=== PATIENT | female | born 1985 | race African-American/Black ===

== ENCOUNTER 2017-05-05 09:43 | Inpatient (IN) | payer OTHER ==
[2017-05-05 11:10] LABS: Hematocrit 36 % (35-47); Mean Corpuscular HGB Conc 33 g/dl (31-36); Mean Corpuscular Hemoglobin 30 pg (27-31); Mean Corpuscular Volume 89 fL (80-97); Mean Platelet Volume 10 um3 (7.4-10.4); Red Blood Count 4.07 10^6/ul (4.0-5.4); Red Cell Distribution Width 15 % (10.5-15); White Blood Count 6.8 10^3/ul (3.5-10.8)
[2017-05-05] MEDS ORDERED: OBEPIDURAL* 250 ML EPIDURAL ONE (14:04)
[2017-05-05] MEDS ORDERED: fentaNYL* 50 MCG/ML 2 ML VIAL (100 MCG VIAL) ONE (14:24)
[2017-05-05] MEDS ORDERED: Phenylephrine IV* 40 MCG/ML 10 ML SYRINGE IV PUSH PRN ×2 (15:07)
[2017-05-05] MEDS ORDERED: Sodium Citrate/Citric Acid* 15 ML UDC PO PRN (15:07)
[2017-05-05] MEDS ORDERED: Famotidine TAB* 20 MG PO PRN (15:07)
[2017-05-05] MEDS ORDERED: OBEPIDURAL* 250 ML EPIDURAL SCH (16:00)
[2017-05-05] MEDS ORDERED: Oxytocin in LR* 20 UNITS/1,000 ML BAG IVPB SCH ×2 (16:00→21:00)
[2017-05-05] MEDS ORDERED: D5LR 1000 ML BAG* 1,000 ML IV SCH (18:00)
[2017-05-05] MEDS ORDERED: ceFOXitin 2 GM IVPREMIX* 2 GM/50 ML BAG ONE (19:20)
[2017-05-05] MEDS ORDERED: OXYTOCIN* 10 UNITS/ML 1 ML VIAL ONE ×2 (19:52→19:56)
[2017-05-05] MEDS ORDERED: Ondansetron INJ* 2 MG/ML VIAL ONE (19:54)
[2017-05-05] MEDS ORDERED: Lidocaine 2% PF* 10 ML AMP ONE (19:58)
[2017-05-05] MEDS ORDERED: Morphine PF AMP (0.5MG/ML)* 5 MG/10 ML AMP ONE (20:04)
[2017-05-05] MEDS ORDERED: Ketorolac INJ* 30 MG/ML 1 ML VIAL ONE (20:08)
[2017-05-05] MEDS ORDERED: Acetaminophen TAB* 325 MG PO PRN (20:47)
[2017-05-05] MEDS ORDERED: Dibucaine 1% 28.35 GM TUBE PR PRN (20:47)
[2017-05-05] MEDS ORDERED: Glycerin ADULT SUPP PR PRN (20:47)
[2017-05-05] MEDS ORDERED: Witch Hazel PAD* JAR TOPICAL PRN (20:47)
[2017-05-05] MEDS ORDERED: Ondansetron INJ* 2 MG/ML VIAL IV PRN ×2 (20:49→20:50)
[2017-05-05] MEDS ORDERED: Scopolamine 1.5 mg* PATCH TRANSDERM PRN (20:49)
[2017-05-05] MEDS ORDERED: diPHENhydraMINE IV* 50 MG/ML 1 ml VIAL (BENADRYL) IV PRN ×2 (20:49→20:50)
[2017-05-05] MEDS ORDERED: fentaNYL* 50 MCG/ML 2 ML VIAL (100 MCG VIAL) IV PRN (20:49)
[2017-05-05] MEDS ORDERED: DiMENhydriNATE IV* 50 MG/ML VIAL IV PUSH PRN ×2 (20:49→20:50)
[2017-05-05] MEDS ORDERED: Naloxone* 2 MG in NS 0.9% 250 ML* 250 ML IV PRN ×2 (20:49→20:50)
[2017-05-05] MEDS ORDERED: oxyCODONE/Acetamin 5/325 MG* TAB PO PRN (20:50)
[2017-05-05] MEDS ORDERED: Nalbuphine* 20 MG/ML 1 ML VIAL IV PRN (20:50)
[2017-05-05] MEDS ORDERED: Naloxone* 0.4 MG/ML 1 ML VIAL IV PRN (20:50)
[2017-05-05] MEDS ORDERED: PROCHLORPERAZINE INJ 5 MG/ML 2 ML VIAL IV PRN (20:50)
[2017-05-05] MEDS ORDERED: HYDROcodone/ACETAMIN 5-325 MG* 1 TAB PO PRN (20:50)
[2017-05-05] MEDS ORDERED: Scopolamine 1.5 mg* PATCH ONE (21:05)
[2017-05-05] MEDS ORDERED: PROCHLORPERAZINE INJ 5 MG/ML 2 ML VIAL ONE (21:11)
[2017-05-06] MEDS: Ketorolac INJ* 30 MG/ML 1 ML VIAL IV PRN ×2 (04:55→11:01)
[2017-05-06] MEDS: Simethicone TAB* 80 MG TAB.CHEW PO SCH ×5 (05:12→20:35)
[2017-05-06] MEDS: Docusate CAP* 100 MG PO SCH ×4 (05:12→20:35)
[2017-05-06] MEDS ORDERED: Lidocaine 1% MPF* 2 ML VIAL ONE (05:27)
[2017-05-06] MEDS: Ferrous Gluconate TAB* 324 MG TAB PO SCH ×2 (08:30→20:34)
[2017-05-06] MEDS: Prenatal Vitamin TAB PO SCH (08:31)
[2017-05-06 09:46] LABS: Hematocrit 27 % (35-47); Hemoglobin 9.2 g/dl (12.0-16.0); Mean Corpuscular HGB Conc 34 g/dl (31-36); Mean Corpuscular Hemoglobin 31 pg (27-31); Mean Corpuscular Volume 89 fL (80-97); Mean Platelet Volume 10 um3 (7.4-10.4); Red Blood Count 3.03 10^6/ul (4.0-5.4); Red Cell Distribution Width 15 % (10.5-15); White Blood Count 8.2 10^3/ul (3.5-10.8)
[2017-05-06] MEDS ORDERED: oxyCODONE/Acetamin 5/325 MG* TAB PO PRN ×2 (12:00)
--- NOTE | 2017-05-06 14:45 | OP ---
DATE OF OPERATION: 05/05/17 - ROOM #[id number]-116 DATE OF : 83 SURGEON: Dara Barrios MD DE ALCOHOLIZER: Seble Miles CNM PRE-OP DIAGNOSES: Category II heart tracing, trial of labor after section, arrest of dilation, and 39 and 5/7th weeks intrauterine . POST-OP DIAGNOSES: Category II heart tracing, trial of labor after section, arrest of dilation, and 39 and 5/7th weeks intrauterine , delivered. OPERATIVE PROCEDURE: Repeat low transverse section. ESTIMATED BLOOD LOSS: 600 cc. IV FLUIDS: 1900 cc of crystalloid. URINE OUTPUT: 100 cc of pink tinged urine. FINDINGS: Revealed a vertex LOT female with Apgars 5 at 1 minute and 9 at 5 minutes. No nuchal cord. Light meconium. Normal-appearing placenta manually extracted. Three-vessel cord intact. Uterine cavity explored without evidence of retained placental tissue or membranes. Fundal fibroid intramural palpated. Unable to deliver the uterus because of the size of the uterus and fibroid together. Normal-appearing tubes and ovaries bilaterally. COMPLICATIONS: None apparent. DISPOSITION: Stable to recovery room. DESCRIPTION OF PROCEDURE: The patient was placed in dorsal lithotomy position. The abdomen was prepped and draped in a sterile standard fashion. The patient was identified with universal protocol. Sensation was tested to appropriate level of anesthesia and incision was made with scalpel through prior incision. This was carried down through the fascia. Fascia was scored in the midline and extended laterally and superiorly using Bolton scissors, superiorly and inferiorly from the rectus muscle with blunt and sharp dissection. The peritoneum was then entered bluntly. Bladder blade was inserted. Lower uterine segment was identified. An incision was made with scalpel. This was carried down very quickly, bluntly to the baby. The incision was extended bluntly. The was delivered. Anterior posterior shoulder delivered. Cord was milked. Baby was immediately handed off to awaiting moth exterminator. Appropriate cord blood was obtained as well as cord gases. Placenta was then manually extracted and noted to be intact with the three-vessel cord. Uterus was palpated. There was a large intramural fundal fibroid making the removal of the uterus not possible through the size of the incision. The uterine cavity was explored and noted to be free of any membranes or placental tissue. Both tubes and ovaries were palpated and palpated normally. The incision was clamped with broad Allis and the incision was closed in two layers, first layer running locked, second layer running imbricated. Lavage was performed. Hemostasis was noted. There was a small area of bleeding as the peritoneum crossed the bladder. This was made hemostatic 3.0 vicryl. Again, copious lavage was performed. Hemostasis was documented. The peritoneum was clamped with Syl and then reapproximated using 3-0 Vicryl in a running fashion. Subfascial area was visualized. Hemostasis assured with Bovie coagulation and the fascia was then reapproximated with 0 Vicryl x2. Subcu was lavaged. Hemostasis was assured with Bovie coagulation and the skin was then reapproximated with a 4-0 Monocryl in a subcuticular fashion. All sponge, needle, instrument and blade counts were correct throughout the case. The patient tolerated the procedure well and went to recovery room in stable condition. [id number]/[facility] #: [id number] KALYN
[2017-05-06] MEDS: Ibuprofen TAB* 600 MG PO PRN (20:35)
[2017-05-07] MEDS: Ibuprofen TAB* 600 MG PO PRN ×4 (04:16→22:02)
[2017-05-07] MEDS: Ferrous Gluconate TAB* 324 MG TAB PO SCH ×2 (10:01→22:02)
[2017-05-07] MEDS: Docusate CAP* 100 MG PO SCH ×3 (10:01→22:02)
[2017-05-07] MEDS: Prenatal Vitamin TAB PO SCH (10:01)
[2017-05-07] MEDS: Simethicone TAB* 80 MG TAB.CHEW PO SCH ×3 (10:01→22:02)
[2017-05-07 21:47] VITALS: BP 105/53
[2017-05-08] MEDS: Simethicone TAB* 80 MG TAB.CHEW PO SCH ×2 (04:49→09:03)
[2017-05-08] MEDS: Docusate CAP* 100 MG PO SCH (09:03)
[2017-05-08] MEDS: Ferrous Gluconate TAB* 324 MG TAB PO SCH (09:03)
[2017-05-08] MEDS: Ibuprofen TAB* 600 MG PO PRN (09:04)
[2017-05-08] MEDS: Prenatal Vitamin TAB PO SCH (09:04)
[2017-05-08] MEDS ORDERED: Scopolamine PATCH Remove* 1 NOTE MISC PATCH OFF ONE (20:50)
== END 2017-05-08 13:07 | disposition home or self-care (01) | DRG 766 ==
LOC: MCHOBOUT 09:43 → MCHOB 10:31
PROVIDERS: ADMIT Obstetrics & Gynecology; ATTEND Obstetrics & Gynecology
PROC: 10D00Z1 Extraction of Products of Conception, Low, Open Approach (ICD-10-PCS; 2017-05-05)
PROC: 4A1HX4Z Monitoring of Products of Conception, Cardiac Electrical Activity, External Approach (ICD-10-PCS; 2017-05-05)
PROC: 10907ZC Drainage of Amniotic Fluid, Therapeutic from Products of Conception, Via Natural or Artificial Opening (ICD-10-PCS; principal; 2017-05-05 19:30)
DX: O34.211 Maternal care for low transverse scar from previous cesarean delivery (principal); O34.13 Maternal care for benign tumor of corpus uteri, third trimester; D25.1 Intramural leiomyoma of uterus; O77.0 Labor and delivery complicated by meconium in amniotic fluid; O62.1 Secondary uterine inertia; O90.81 Anemia of the puerperium; Z3A.39 39 weeks gestation of pregnancy; Z37.0 Single live birth
CPT/HCPCS: 36415; 76815; 85025; 86850; 86900; 86901; A9270-GY; J0694; J0780; J1885; J2001; J2405; J2590; J3010

== ENCOUNTER 2017-09-01 16:09 | Emergency (ER) | payer OTHER ==
[2017-09-01 17:00] VITALS: BP 120/70
--- NOTE | 2017-09-01 17:20 | UC ---
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 Pt's medications reviewed this visit - History of Current Complaint Chief Complaint: UCRespiratory Stated Complaint: ST Time Seen by Provider: 09/01/17 17:19 Hx Obtained From: Patient Hx Last Menstrual Period: 08/28/17 Onset/Duration: Gradual Onset, Lasting Days Pain Intensity: 4 Pain Scale Used: 0-10 Numeric - Allergies/Home Medications Allergies/Adverse Reactions: Allergies Allergy/AdvReac Type Severity Reaction Status Date / Time No Known Allergies Allergy Verified 09/01/17 16:57 PMH/Surg Hx/FS Hx/Imm Hx Previously Healthy: Yes - Surgical History Surgical History: Yes Surgery Procedure, Year, and Place: - Family History Known Family History: Positive: Hypertension - Social History Occupation: Employed Full-time - cable television technician at [employer] Lives: With Family Alcohol Use: None Substance Use Type: None Smoking Status (MU): Never Smoked Tobacco - Immunization History Most Recent Influenza Vaccination: 03/26/17 Most Recent Tetanus Shot: declined 06/27/13 Most Recent Pneumonia Vaccination: none Review of Systems Constitutional: Fatigue ENT: Sore Throat All Other Systems Reviewed And Are Negative: Yes Physical Exam Triage Information Reviewed: Yes Appearance: Well-Appearing, No Pain Distress, Well-Nourished Vital Signs: Initial Vital Signs Temp 97.7 F 09/01/17 16:54 Pulse 70 09/01/17 16:54 Resp 16 09/01/17 16:54 BP 120/70 09/01/17 16:54 Pulse Ox 100 09/01/17 16:54 Eye Exam: Normal Eyes: Positive: Conjunctiva Clear ENT: Positive: Hearing grossly normal, Pharyngeal erythema, TMs normal. Negative: Nasal congestion, Nasal drainage, Tonsillar swelling, Tonsillar exudate Neck: Positive: Supple, Nontender, No Lymphadenopathy - submand R>L - mild Respiratory Exam: Normal Respiratory: Positive: Chest non-tender, Lungs clear, Normal breath sounds, No respiratory distress, No accessory muscle use Cardiovascular Exam: Normal Cardiovascular: Positive: RRR, No Murmur Abdominal Exam: Normal Abdomen Description: Positive: Nontender, No Organomegaly, Soft Musculoskeletal Exam: Normal Neurological Exam: Normal Skin Exam: Normal Throat Pain/Nasal Course/Dx - Course Assessment/Plan: pt with sore throat, progressive x 4 days. vss. + erythema posterior pharynx. + strep. amoxicillin - pt . APAP. hydrate. secretion precaution - offered mask. school note - Differential Dx/Diagnosis Provider Diagnoses: strep pharyngitis Discharge - Sign-Out/Discharge Documenting (check all that apply): Discharge - Discharge Plan Condition: Stable Disposition: HOME Prescriptions: Amoxicillin PO (*) [Amoxicillin 875 MG (*)] 875 mg PO BID #20 tab Patient Education Materials: Strep Throat (ED) Forms: *Work Release Referrals: Neno Voss MD [Primary Care Provider] - Additional Instructions: - Okay to alternate Tylenol every 6 hours for pain. Take with food. Do NOT take for more than 4-5 days - Okay to gargle and spit every 4 hours as needed for pain - Stay well hydrated - frequent sips of cold fluids will be soothing to your throat (popsicles, jello, ice cream, ice water). Avoid excess caffeine until your symptoms have resolved. - Do not share eating, drinking utensils. Throw out your toothbrush when your symptoms resolved -Throat infections are spread by oral secretions - do not share eating or drinking utensils until you symptoms are resolved. Clean items that may get your secretions such as cell phones, ipads, computer mouse, television remotes After you have been on antibiotics for 2 days, change your toothbrush and your pillowcase. - Take antibiotics as prescribed until gone - Contact your doctor to arrange a follow-up appointment as needed - Billing Disposition and Condition Condition: STABLE Disposition: HOME
== END 2017-09-01 17:38 | disposition home or self-care (01) ==
LOC: UCCORT 16:09
DX: J02.0 Streptococcal pharyngitis (principal)
CPT/HCPCS: 87651; 99212; G0463